=== PATIENT | male | born 1955 | race Hispanic/Latino ===

== ENCOUNTER 2022-04-25 00:06 | Emergency (ER) | payer OTHER ==
[~2022-04-25] VITALS: Ht 160 cm; Wt 81.6 kg
[~2022-04-25 00:06] MED LIST: GLUCOSAMINE1000 MG; HYZAAR 50-12.51 EACH PO; VITAMIN D1000 UNI1 PO
[2022-04-25] MEDS ORDERED: KETOROLAC TROMETHAMINE 60 MG/2 ML VIAL IM ONE (00:30)
[2022-04-25 00:44] LABS: CLARITY,URINE CLEAR (CLEAR); COLOR,URINE YELLOW (YELLOW); KETONES,URINE NEGATIVE (NEGATIVE); LEUKOCYTE ESTERASE ,URINE NEGATIVE (NEGATIVE); NITRITE,URINE NEGATIVE (NEGATIVE); PROTEIN,URINE DIPSTICK NEGATIVE (NEGATIVE); URINE UROBILINOGEN 0.2 mg/dL (0.2 - 1)
[2022-04-25] MEDS ORDERED: KETOROLAC TROMETHAMINE 60 MG/2 ML VIAL ONE (00:45)
[2022-04-25 00:49] LABS: BACTERIA,URINE RARE /HPF; EPITHELIAL CELLS,URINE FEW /LPF; RBC,URINE 0-5 /HPF (0-5); WBC,URINE (MAN) 0-5 /HPF (0-5)
[2022-04-25] MEDS ORDERED: ULTRAM 50MG50 MG PO (02:27)
== END 2022-04-25 02:35 | disposition home or self-care (01) ==
LOC: ER 00:10
DX: R10.9 Unspecified abdominal pain (principal); R05.9 Cough, unspecified; F17.210 Nicotine dependence, cigarettes, uncomplicated
CPT/HCPCS: 74176; 81001; 99283; J1885